=== PATIENT | male | born 1970 | race Caucasian/White ===

== ENCOUNTER 2018-03-09 12:00 | Inpatient (IN) | payer OTHER, MEDICAID ==
[~2018-03-09] VITALS: Ht 182.9 cm; Wt 102.6 kg
[2018-03-09] VITALS (9 sets, daily range): BP systolic 80–122; BP diastolic 63–85; Ht 182.9 cm; Wt 102.6 kg
[~2018-03-09 12:00] MED LIST: AMLODIPINE BESYL5 M1 PO; ASPIR 8181 MG PO; ATORVASTATIN CA40 M1 PO; CLONIDINE HCL0.1 MG PO; CORE25 PO; FUROSEMIDE40 MG PO; GLIPIZIDE5 MG PO; HYDRALAZINE HYD50 MG PO; IMDUR60 MG PO; NIASPAN1000 MG PO; PLA75 PO
[2018-03-09 12:51] LABS: BASOPHIL % 0.5 % (0-2); PLATELET COUNT 175 x10^3mcL (130-400)
[2018-03-09 12:59] LABS: RED CELL DISTRIBUTION WIDTH 19.3 % (11.5-14.5)
[2018-03-09] MEDS ORDERED: RENVELA800 M1 PO (13:22)
[2018-03-09] MEDS ORDERED: COUMADIN1 MG PO (13:23)
[2018-03-09] MEDS ORDERED: TOPROL XL25 MG PO (13:23)
[2018-03-09] MEDS ORDERED: BENAZEPRIL HYDR20 M1 PO (13:23)
[2018-03-09] MEDS ORDERED: RENA-VITE1 TAB PO (13:24)
[2018-03-09] MEDS ORDERED: ATORVASTATIN CA40 M1 PO (13:24)
[2018-03-09] MEDS ORDERED: LASIX40 MG PO (13:24)
[2018-03-09 13:49] LABS: ALBUMIN 3.8 g/dL (3.4-5.0); BILIRUBIN TOTAL 1.6 mg/dL (0.20-1.00); CALCIUM 9.7 mg/dL (8.5-10.1); CARBON DIOXIDE 14.6 mmol/L (21-32)
[2018-03-09 13:52] LABS: TOTAL PROTEIN, SERUM 8.5 g/dL (6.4-8.2)
[2018-03-09 13:54] LABS: POTASSIUM SERUM 5.6 mmol/L (3.5-5.1)
[2018-03-09 13:55] LABS: CREATININE SERUM 10.3 mg/dL (0.7-1.3)
[2018-03-09 17:23] LABS: MAGNESIUM 2.7 mg/dL (1.8-2.4)
[2018-03-09 17:35] LABS: PHOSPHOROUS 12.4 mg/dL (2.5-4.9)
[2018-03-10 00:06] VITALS: BP 80/47
[2018-03-10 02:12] VITALS: BP 77/57
[2018-03-10 03:05] VITALS: BP 77/49
[2018-03-10 03:40] VITALS: BP 83/55
== END 2018-03-10 09:32 | disposition expired | DRG 208 ==
LOC: ED 12:00 → IC 16:03
PROVIDERS: Emergency Medicine; ADMIT Family Medicine
PROC: 5A1935Z Respiratory Ventilation, Less than 24 Consecutive Hours (ICD-10-PCS; principal; 2018-03-09)
PROC: 0BH17EZ Insertion of Endotracheal Airway into Trachea, Via Natural or Artificial Opening (ICD-10-PCS; 2018-03-09)
PROC: 05HN33Z Insertion of Infusion Device into Left Internal Jugular Vein, Percutaneous Approach (ICD-10-PCS; 2018-03-09)
PROC: B544ZZA Ultrasonography of Left Jugular Veins, Guidance (ICD-10-PCS; 2018-03-09)
DX: J96.22 Acute and chronic respiratory failure with hypercapnia (principal); N18.6 End stage renal disease; I50.43 Acute on chronic combined systolic (congestive) and diastolic (congestive) heart failure; K65.9 Peritonitis, unspecified; I13.2 Hypertensive heart and chronic kidney disease with heart failure and with stage 5 chronic kidney disease, or end stage renal disease; I47.2 Ventricular tachycardia; J96.21 Acute and chronic respiratory failure with hypoxia; E11.22 Type 2 diabetes mellitus with diabetic chronic kidney disease; E11.65 Type 2 diabetes mellitus with hyperglycemia; F14.10 Cocaine abuse, uncomplicated; E83.39 Other disorders of phosphorus metabolism; E78.1 Pure hyperglyceridemia; E83.41 Hypermagnesemia; E87.5 Hyperkalemia; Z66 Do not resuscitate; I25.2 Old myocardial infarction; Z99.2 Dependence on renal dialysis; Z79.82 Long term (current) use of aspirin; Z79.01 Long term (current) use of anticoagulants; Z79.84 Long term (current) use of oral hypoglycemic drugs; Z95.810 Presence of automatic (implantable) cardiac defibrillator
CPT/HCPCS: 36600; 82962; 83880; A4628; J0282; J1644; J1815; J2250; J2370; J2543; J2704; J3010; J3370; J3490; J7030; J7050; J7060; J7620; Q0092